=== PATIENT | male | born 1935 | race Caucasian/White ===

== ENCOUNTER → 2017-04-01 | Outpatient (CLI) | payer OTHER, MEDICARE ==
[~2017-04-01] VITALS: Ht 169.5 cm; Wt 114.0 kg
[~2017-04-01] MED LIST: ALPH600C2 PO; ASPI81CH2 PO; ATEN25TA PO; ATOR-24 PO; CHOL100027 PO; DORZ2SOL20 OPL; GLC/500 PO; LEVO75TA5 PO; LOSA1TAB PO; NITR0.4S UT; NXM/40 PO; PRED1SUS3 OPR; TRAV0.00 OPL
[2017-04-01 13:29] VITALS: BP 131/80; PULSE 64; Ht 169.5 cm; Wt 114.0 kg
== END | disposition home or self-care (01) ==
LOC: C.NEUR 12:50
PROVIDERS: ATTEND Internal Medicine Pulmonary Disease
DX: G47.33 Obstructive sleep apnea (adult) (pediatric) (principal)